=== PATIENT | male | born 1980 | race Caucasian/White ===

== ENCOUNTER 2018-05-13 12:36 | Inpatient (IN) ==
[2018-05-13] MEDS ORDERED: Acetaminophen 325 MG Tablet PO PRN (14:53)
[2018-05-13] MEDS ORDERED: Bisacodyl 10 MG Supp RECTAL PRN (14:53)
[2018-05-13] MEDS ORDERED: Vancomycin Consult Pharmacy 1 EACH OTHER SCH (17:45)
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
[2018-05-13] MEDS ORDERED: Piperacil/Tazo 3.375 GM Premix 50 ML IV.SIG SCH (18:00)
[2018-05-13] MEDS: Sod Chloride 0.9% Inj 1,000 ML IV.CONT SCH (18:10)
[2018-05-13] MEDS: Ketorolac Inj 30 MG/ML (IVP) Vial IV.PUSH PRN (22:31)
[2018-05-14] MEDS: Piperacil/Tazo 3.375 GM Premix 50 ML IV.SIG SCH ×5 (02:48→23:11)
[2018-05-14] MEDS: Sod Chloride 0.9% Inj 1,000 ML IV.CONT SCH ×3 (02:48→11:05)
[2018-05-14] MEDS: Vancomycin Inj 1,400 MG in Sodium Chlor 0.9% Inj 500 ML IV.SIG SCH ×3 (03:21→17:26)
[2018-05-14] MEDS: Ketorolac Inj 30 MG/ML (IVP) Vial IV.PUSH PRN ×4 (05:07→23:26)
[2018-05-14 10:22] LABS: Baso % (Auto) 0.2 % (0.0-2.0); Eos # (Auto) 0.2 th/mm3 (0.0-0.4); Eos % (Auto) 0.9 % (0.0-4.0); Hematocrit 38.2 % (39.0-51.0); Hemoglobin 12.8 gm/dL (13.0-17.0); Lymph # (Auto) 1.9 th/mm3 (1.0-4.8); Mean Corpuscular HGB Conc 33.3 % (32.0-36.0); Mean Corpuscular Hemoglobin 29.9 pg (27.0-34.0); Mean Corpuscular Volume 89.5 fL (80.0-100.0); Mean Platelet Volume 8.6 fL (7.0-11.0); Mono # (Auto) 0.9 th/mm3 (0.0-0.9); Mono % (Auto) 3.9 % (0.0-8.0); Platelet Count 192 th/mm3 (150-450); Red Blood Count 4.27 mil/mm3 (4.50-5.90); Red Cell Distribution Width 12.3 % (11.6-17.2)
[2018-05-14 10:31] LABS: Chloride 110 meq/L (98-107); Potassium 3.4 meq/L (3.5-5.1); Sodium 143 meq/L (136-145)
[2018-05-14 10:34] LABS: Anion Gap 10 meq/L (5-15); Carbon Dioxide 23.4 meq/L (21.0-32.0); Glucose,Random 85 mg/dL (74-106)
[2018-05-14 10:35] LABS: Blood Urea Nitrogen 11 mg/dL (7-18)
[2018-05-14 10:38] LABS: Glomerular Filtration Rate Greater Than 89 mL/min (>89)
--- NOTE | 2018-05-14 11:27 | P.PN ---
Subjective Interval history: 38-year-old male who is seen and examined today in follow-up for febrile illness , sepsis and IV drug use. Patient denies any new complaints. Denies any worsening of his chronic back pain. Apparently laboratory was unable to obtain samples from him this morning. Vital signs appear to be stable, patient remains afebrile Physical Exam Vital signs: Vital Signs 05/13/18 17:27 05/13/18 20:00 05/14/18 00:00 Temperature 99.2 F 98.2 F 97.7 F Pulse Rate 88 78 81 Respiratory Rate 20 20 20 Blood Pressure 117/55 L 119/53 L 138/58 L Pulse Oximetry 98 97 98 05/14/18 05:46 05/14/18 08:00 Temperature 97.9 F Pulse Rate 69 Respiratory Rate 18 14 Blood Pressure 117/69 Pulse Oximetry 100 Intake & Output 05/13/18 05/14/18 05/14/18 18:59 06:59 18:59 Intake Total 2094 / 2094 1000 / 1000 Balance 2094 / 2094 1000 / 1000 Weight 93.2 kg 93.4 kg Intake: IV 1614 / 1614 1000 / 1000 NS Inj 1,000 ML @ 200 mls/hr IV 1000 / 1000 1000 / 1000 .CONT .Q5H KODI Rx#:[id number] Zosyn 3.375 GM Premix 50 ML @ 100 / 100 100 mls/hr IV.SIG Q6HR KODI Rx#: [id number] Vancomycin Inj 1,400 MG In NS 514 / 514 Inj 500 ML @ 250 mls/hr IV.SIG Q8H KODI Rx#:[id number] Oral 480 / 480 Other: # Voids 2 4 # Bowel Movements 1 Weight On Admission 93.2 kg Narrative: GENERAL: Well-developed, well-nourished, in no acute distress. alert and orientated HEENT: Head is normocephalic without any lesions or masses noted. Facial features are symmetric. Eyes: Extraocular muscles are intact. Conjunctivae were clear. NECK: Supple without any masses. Trachea midline no deviation. No JVD, CARDIAC: Regular rhythm, regular rate. S1/S2 are heard. No murmurs gallops or rubs. LUNGS: Clear to auscultation bilaterally. No wheeze, rhonchi or rales. No use of accessory muscles on inspiration or expiration. ABDOMEN: Soft, nontender. Nondistended. Bowel sounds heard in all 4 quadrants. No organomegaly or masses. Negative rebound, negative guarding EXTREMITIES: No edema, pulses are equal bilaterally. No cyanosis or clubbing NEUROLOGY: Mood and affect appear appropriate. Cranial nerves II through XII grossly intact. Results - Labs CBC & Chem 7: 05/14/18 10:11 05/14/18 10:11 Laboratory Results - last 24 hr 05/13/18 05/13/18 05/14/18 18:05 20:42 10:11 CBC w Diff WBC RBC Hgb Hct MCV MCH MCHC RDW Plt Count MPV Neut % (Auto) Lymph % (Auto) Smyth % (Auto) Eos % (Auto) Baso % (Auto) Neut # (Auto) Lymph # (Auto) Smyth # (Auto) Eos # (Auto) Baso # (Auto) WBC Differential Diff Scan Differential Comment Sodium 143 Potassium 3.4 L Chloride 110 H Carbon Dioxide 23.4 Anion Gap 10 BUN 11 Creatinine 0.85 Estimated GFR Greater than 89 Random Glucose 85 Lactic Acid 3.3 H 4.8 H* Calcium 8.0 L 05/14/18 10:11 CBC w Diff Slide review pending WBC 24.0 H D RBC 4.27 L Hgb 12.8 L Hct 38.2 L MCV 89.5 MCH 29.9 MCHC 33.3 RDW 12.3 Plt Count 192 MPV 8.6 Neut % (Auto) 87.0 H Lymph % (Auto) 8.0 L Smyth % (Auto) 3.9 Eos % (Auto) 0.9 Baso % (Auto) 0.2 Neut # (Auto) 21.0 H Lymph # (Auto) 1.9 Smyth # (Auto) 0.9 Eos # (Auto) 0.2 Baso # (Auto) 0.0 WBC Differential . Diff Scan Auto diff confirmed Differential Comment . Sodium Potassium Chloride Carbon Dioxide Anion Gap BUN Creatinine Estimated GFR Random Glucose Lactic Acid Calcium Assessment and Plan - Assessment (1) Systemic inflammatory response syndrome Code(s): R65.10 - Systemic inflammatory response syndrome (SIRS) of non- infectious origin without acute organ dysfunction Status: Acute (2) Active intravenous drug use Code(s): F19.90 - Other psychoactive substance use, unspecified, uncomplicated Status: Inactive - Plan Systemic inflammatory response syndrome -Patient met criteria on admission with febrile illness, tachycardia, no obvious source of infection at this time. 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 -Continue vancomycin and Zosyn -Blood cultures are negative for 1 day -Chest x-ray does not indicate any acute abnormality -CT of the abdomen pelvis does not indicate any source of infection -Continue to monitor CBC, lactic acid level Nausea, vomiting, resolved -Patient does have mild signs of dehydration with hypernatremia, lactic acidosis -Continue IV fluids -Advance diet as tolerated Chronic back pain -Patient denies any worsening pain of his back pain at this time -Pain control DVT prevention -Sequential compression devices
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
[2018-05-15] MEDS: Vancomycin Inj 1,400 MG in Sodium Chlor 0.9% Inj 500 ML IV.SIG SCH ×2 (01:38→08:26)
[2018-05-15] MEDS: Piperacil/Tazo 3.375 GM Premix 50 ML IV.SIG SCH ×2 (06:09→11:33)
[2018-05-15] MEDS: Ketorolac Inj 30 MG/ML (IVP) Vial IV.PUSH PRN ×2 (06:09→11:57)
[2018-05-15] MEDS ORDERED: Pharmacy Ordered Lab Info OTHER ONE (08:45)
[2018-05-15 08:51] LABS: Baso # (Auto) 0.1 th/mm3 (0.0-0.2); Baso % (Auto) 0.7 % (0.0-2.0); Eos # (Auto) 0.4 th/mm3 (0.0-0.4); Eos % (Auto) 3.4 % (0.0-4.0); Hemoglobin 13.2 gm/dL (13.0-17.0); Lymph # (Auto) 2.6 th/mm3 (1.0-4.8); Lymph % (Auto) 20.7 % (9.0-44.0); Mean Corpuscular Hemoglobin 29.6 pg (27.0-34.0); Mean Corpuscular Volume 89.8 fL (80.0-100.0); Mean Platelet Volume 9.1 fL (7.0-11.0); Mono # (Auto) 0.8 th/mm3 (0.0-0.9); Mono % (Auto) 6.2 % (0.0-8.0); Neut # (Auto) 8.5 th/mm3 (1.8-7.7); Platelet Count 207 th/mm3 (150-450); Red Blood Count 4.45 mil/mm3 (4.50-5.90); Red Cell Distribution Width 12.3 % (11.6-17.2); White Blood Count 12.4 th/mm3 (4.0-11.0)
--- NOTE | 2018-05-15 12:20 | P.DS ---
Date of admission: 05/13/18 17:21 Primary care physician: UNKNOWN Attending physician on discharge: Philippe Harrington Anticipated date of discharge: 05/15/18 Brief History from admission: 38-year-old male with known history of IV drug use with multiple infections to include cellulitis, abscess, bacteremia. Patient has had multiple hospitalizations due to adverse events from IV drug use. Patient usually goes to [facility] for evaluation, however he went to [facility] in [place] today because of fever. Patient states that he has not been feeling right over the last week. He stopped using IV drugs 4 days ago and thought that he may be going through the withdrawal sickness. However the only difference was the fact that he had nausea and vomiting today. He states that usually when he goes to withdrawals he does get body aches, fatigue, insomnia, headaches, fever, chills. However today when he woke up he felt as if he had a fever, he had the chills. He started having intractable nausea and vomiting. When he cannot stop vomiting he came to emergency department for evaluation. Upon evaluation patient was found to have mildly elevated lactic acid level, hypernatremia. Because of the patient's febrile illness and associated findings is recommended by the ER physician that the patient be observed in the hospital for further evaluation and management. DS: Diagnosis - Discharge Diagnosis (1) Systemic inflammatory response syndrome Status: Acute (2) Active intravenous drug use Status: Inactive DS: Medications - Discharge Medications Prescriptions: doxycycline monohydrate 100 mg PO BID #14 cap DS: Summary Hospital Course: 38-year-old male with known history of IV drug use with evaluations and hospitalizations for recurrent infections to include cellulitis, abscesses, bacteremia. Patient presented to the ER for febrile illness, nausea, vomiting. Patient thought he was withdrawing from IV drugs in which he did 4 days prior to coming to the emergency department. Patient had workup done and did not find any source of infection. Has significant lactic acidosis. Is recommended by the ER physician that the patient be admitted to the hospital for further evaluation and management. Patient was admitted to the hospital with empirical antibiotics include vancomycin and Zosyn, IV fluids, patient laboratory studies were followed. Lactic acid was trended until normal. Patient did have increase in leukocytosis but has returned to normal. Blood cultures were ascertained and have remained negative. No infection source was identified. Patient with systemic inflammatory response syndrome. Patient clinically stable this time. Plan for discharge home in stable condition. - Time Spent with Patient Total time spent providing and/or coordinating discharge services: Greater than 30 minutes - Quality: VTE Deep Vein Thrombosis/Pulmonary Embolism Present on Admission: No Exam Vital signs: Vital Signs 05/14/18 16:00 05/14/18 20:00 05/15/18 00:00 Temperature 97.2 F L 98 F 98 F Pulse Rate 61 65 65 Respiratory Rate 18 20 20 Blood Pressure 121/65 124/75 134/82 Pulse Oximetry 99 100 100 05/15/18 08:00 Temperature 97.0 F L Pulse Rate 64 Respiratory Rate 16 Blood Pressure 122/62 Pulse Oximetry 99 Intake & Output 05/14/18 05/15/18 05/15/18 18:59 06:59 18:59 Intake Total 2614 / 2614 1608 / 1608 570 / 570 Balance 2614 / 2614 1608 / 1608 570 / 570 Weight 97.3 kg Intake: IV 2614 / 2614 1128 / 1128 570 / 570 NS Inj 1,000 ML @ 200 mls/hr IV 1999 / 1999 .CONT .Q5H KODI Rx#:[id number] Zosyn 3.375 GM Premix 50 ML @ 100 / 100 100 / 100 50 / 50 100 mls/hr IV.SIG Q6HR KODI Rx#: [id number] Vancomycin Inj 1,400 MG In NS 514 / 514 1028 / 1028 520 / 520 Inj 500 ML @ 250 mls/hr IV.SIG Q8H KODI Rx#:[id number] Oral 480 / 480 Other: # Voids 3 Date of Last Bowel Movement 05/13/18 Narrative: GENERAL: Well-developed, well-nourished, in no acute distress. alert and orientated HEENT: Head is normocephalic without any lesions or masses noted. Facial features are symmetric. Eyes: Extraocular muscles are intact. Conjunctivae were clear. NECK: Supple without any masses. Trachea midline no deviation. No JVD, CARDIAC: Regular rhythm, regular rate. S1/S2 are heard. No murmurs gallops or rubs. LUNGS: Clear to auscultation bilaterally. No wheeze, rhonchi or rales. No use of accessory muscles on inspiration or expiration. ABDOMEN: Soft, nontender. Nondistended. Bowel sounds heard in all 4 quadrants. No organomegaly or masses. Negative rebound, negative guarding EXTREMITIES: No edema, pulses are equal bilaterally. No cyanosis or clubbing NEUROLOGY: Mood and affect appear appropriate. Cranial nerves II through XII grossly intact. Moving all extremities, speech is clear Results Procedures completed during hospitalization: None Labs on day of discharge: Labs from last 24 hours 05/15/18 05/15/18 05/15/18 08:30 08:30 08:30 CBC w Diff Auto diff final WBC 12.4 H RBC 4.45 L Hgb 13.2 Hct 40.0 MCV 89.8 MCH 29.6 MCHC 33.0 RDW 12.3 Plt Count 207 MPV 9.1 Neut % (Auto) 69.0 Lymph % (Auto) 20.7 [place]oup % (Auto) 6.2 Eos % (Auto) 3.4 Baso % (Auto) 0.7 Neut # (Auto) 8.5 H Lymph # (Auto) 2.6 [place]oup # (Auto) 0.8 Eos # (Auto) 0.4 Baso # (Auto) 0.1 WBC Differential . Differential Comment . Creatinine 1.00 Estimated GFR 85 L Lactic Acid Vancomycin Trough Pending 05/14/18 14:17 CBC w Diff WBC RBC Hgb Hct MCV MCH MCHC RDW Plt Count MPV Neut % (Auto) Lymph % (Auto) [place]oup % (Auto) Eos % (Auto) Baso % (Auto) Neut # (Auto) Lymph # (Auto) Troup # (Auto) Eos # (Auto) Baso # (Auto) WBC Differential Differential Comment Creatinine Estimated GFR Lactic Acid 1.6 Vancomycin Trough - Impressions ITS Impressions Lumbar Spine MRI 05/14/18 00:00 CONCLUSION: 1. Minimal grade 1 anterolisthesis of L5 on S1 appears to be due to facet hypertrophy bilaterally. 2. Isolated disc desiccation and loss of height at L1-2. Disc height and hydration are preserved at all remaining lumbar levels. 3. Despite mild degenerative changes, the spinal canal and neural foramina are patent throughout without nerve root compromise to explain current clinical symptoms. Thoracic Spine MRI 05/14/18 00:00 CONCLUSION: 1. Negative MRI of thoracic spine Discharge Plan - Discharge Disposition Patient Disposition: 01 Discharge Home - Discharge Condition Condition: Stable - Discharge Order Discharge Orders: Discharge Order (Routine); Ordered 05/15/18 Ordered By: Tony Hou - Discharge Details Anticipated Discharge Date: 05/15/18 - Physicians Team Primary Care Provider: UNKNOWN, Attending Provider: Philippe Harrington - Rxs /Orders / Referrals /Forms Prescriptions: New doxycycline monohydrate 100 mg Capsule 100 mg PO BID Qty: 14 RF: 0 No Action No Known Home Medications Referrals: UNKNOWN, [Primary Care Provider] - See Instructions - Post Discharge Care Plan Care Plan Goals: Your Health Problems: Goals to Promote Your Health: * To prevent worsening of your condition * To maintain your health at the optimal level Directions to Meet Your Goals: * Take your medications as prescribed * Follow your dietary instruction * Follow activity as directed * Keep your appointments as scheduled * Take your immunizations and boosters as scheduled * If your symptoms worsen call your PCP * If no PCP go to Urgent Care or Emergency Room Smoking is dangerous to your health. Avoid second hand smoke. You may reach the 24-hour crisis hotline for domestic abuse at .
[2018-05-15] MEDS ORDERED: Vancomycin Inj 1,500 MG in Sodium Chlor 0.9% Inj 500 ML IV.SIG SCH (21:00)
[2018-05-16] MEDS ORDERED: Pharmacy Ordered Lab Info OTHER SCH (20:45)
== END 2018-05-15 13:34 | disposition home or self-care (01) ==
LOC: PHEDDLT 12:36 → PH3 12:36 → OBSVTOIN 17:21
PROVIDERS: ADMIT Hospitalist; ATTEND Hospitalist